=== PATIENT | female | born 1970 ===

== ENCOUNTER → 2021-08-20 11:56 | Outpatient (CLI) | payer OTHER, SELFPAY ==
--- NOTE | 2021-08-20 | DI.US.S_ITS ---
LIMITED ULTRASOUND OF RIGHT BREAST AND AXILLA: 08/20/2021 CLINICAL: Palpable right breast lump. Comparison is made to exams dated: 08/20/2021 mammogram - [facility] and 05/27/2021 mammogram - [facility]. Color flow ultrasound of the right breast 9-10 o'clock, and axilla regions was performed. Berger scale images of the real-time examination were reviewed. There is a benign 0.6 cm oval lymph node with a circumscribed margin in the right breast at 9 o'clock posterior depth 7 cm from the nipple. This oval lymph node is hypoechoic with fatty hilum. This correlates as palpated. There also is a benign 0.7 cm oval lymph node with a circumscribed margin in the right breast at 10 o'clock posterior depth 7 cm from the nipple. This oval lymph node is hypoechoic with fatty hilum. This correlates as palpated. No significant abnormalities were seen sonographically in the right axilla. IMPRESSION: BENIGN There is no sonographic evidence of malignancy. The 0.6 cm oval lymph node in the right breast at 9 o'clock posterior depth is benign. The 0.7 cm oval lymph node in the right breast at 10 o'clock posterior depth is benign. Return to annual mammogram screening schedule is recommended. This exam was interpreted at Station ID: [id number]. Electronically Signed By: Jordan seth:08/20/2021 13:05:09 letter sent: Clinical Evaluation Ultrasound BI-RADS: 2 Benign
--- NOTE | 2021-08-20 | DI.MG.S_ITS ---
UNILATERAL RIGHT DIGITAL DIAGNOSTIC MAMMOGRAM 3D/2D: 08/20/2021 CLINICAL: Palpable right breast lump. Comparison is made to exam dated: 05/27/2021 mammogram - [facility]. There are scattered fibroglandular elements in right breast. There are stable benign intramammary nodes in the lateral right breast. No significant masses, calcifications, or other findings are seen in the breast. IMPRESSION: INCOMPLETE: NEEDS ADDITIONAL IMAGING EVALUATION There is no abnormality seen in the right breast to correspond with the palpable abnormalities in the lateral aspect that the patient was unable to pinpoint at the time of the exam; however, ultrasound is recommended. This exam was interpreted at Station ID: [id number]. NOTE: For mammograms, a report in lay terms will be sent to the patient. Approximately 15% of breast malignancies will not be visualized mammographically. In the management of a palpable breast mass, a negative mammogram must not discourage biopsy of a clinically suspicious lesion. Electronically Signed By: Jordan Flores M.D. ar/:08/20/2021 13:01:52 ACR BI-RADS Category 0: Incomplete [id number]
== END ==
PROVIDERS: PCP Physician Assistant; Referring Provider Physician Assistant; Visit Provider Physician Assistant
DX: N63.11 Unspecified lump in the right breast, upper outer quadrant (principal); N64.4 Mastodynia; R92.2 Inconclusive mammogram; R59.0 Localized enlarged lymph nodes
CPT/HCPCS: 76642; 77065; G0279